=== PATIENT | male | born 1935 | race Caucasian/White ===

== ENCOUNTER 2018-07-24 16:03 | Emergency (ER) | payer MEDICARE, OTHER ==
[~2018-07-24] VITALS: Ht 170.2 cm; Wt 65.0 kg
[2018-07-24 16:13] VITALS: Ht 170.2 cm; Wt 65.0 kg
[2018-07-24] MEDS ORDERED: SOD CHLORIDE 0.9% 1,000 ML IV STA ×2 (16:20→18:18)
[2018-07-24] MEDS ORDERED: IBUP-1542 PO (17:21)
[2018-07-24] MEDS ORDERED: HYDR25TA6 PO (17:21)
[2018-07-24] MEDS ORDERED: METF500T24 PO (17:22)
[2018-07-24] MEDS ORDERED: ASPI-817 PO (17:23)
[2018-07-24] MEDS ORDERED: METO200T49 PO (17:23)
[2018-07-24] MEDS ORDERED: AMLO1CAP15 PO (17:24)
[2018-07-24] MEDS ORDERED: GLIM4TAB PO (17:24)
[2018-07-24] MEDS ORDERED: ATOR20TA38 PO (17:25)
[2018-07-24] MEDS ORDERED: LINA5TAB PO (17:25)
--- NOTE | 2018-07-24 20:07 | ERD ---
ER Documentation Chief Complaint Chief Complaint hyperglycemia, dizziness HPI This is a 83-year-old male who is here for multiple complaints. He says he is chief complaint is that his mouth is very dry and he is thirsty. He says he has some diffuse body aches with pain in his joints and muscles back and chest is worse with movement. He said occasional dry cough no productive sputum. No fever. No nausea vomiting or diarrhea. This information was translated using the charge nurse, Suzanne CLARKE All systems reviewed and are negative except as per history of present illness. Medications Home Meds Reported Medications Atorvastatin Calcium* (Atorvastatin Calcium*) 20 Mg Tablet, 20 MG PO QHS, #30 TAB 07/24/18 Linagliptin (TRADJENTA) 5 Mg Tablet, 5 MG PO DAILY, TAB 07/24/18 Amlodipine-Benazepril (Amlodipine-Benazepril) 10-40 Mg Capsule, 1 TAB PO DAILY, #30 TAB 07/24/18 Glimepiride* (Glimepiride*) 4 Mg Tablet, 4 MG PO WITH BREAKFAST, TAB 07/24/18 Aspirin* (Aspirin* EC) 81 Mg Tablet.dr, 81 MG PO DAILY, TAB 07/24/18 Metoprolol Succinate* (Toprol XL*) 200 Mg Tab.sr.24h, 200 MG PO DAILY, #30 TAB 07/24/18 Metformin Hcl* (Metformin Hcl*) 500 Mg Tablet, 1000 MG PO WITH BREAKFAST DINNE, #60 TAB 07/24/18 Ibuprofen* (Ibuprofen*) 600 Mg Tablet, 600 MG PO BID, TAB 07/24/18 Hydrochlorothiazide* (Hydrochlorothiazide*) 25 Mg Tab, 25 MG PO DAILY, #30 TAB 07/24/18 Allergies Allergies: Coded Allergies: No Known Allergy (Unverified , 07/24/18) PMhx/Soc History of Surgery: No Anesthesia Reaction: No Hx Neurological Disorder: No Hx Respiratory Disorders: No Hx Cardiac Disorders: Yes (htn) Hx Psychiatric Problems: No Hx Miscellaneous Medical Probl: No Hx Alcohol Use: No Hx Substance Use: No Hx Tobacco Use: No Smoking Status: Never smoker FmHx Family History: No coronary disease Physical Exam Vitals Vital Signs Date Temp Pulse Resp B/P (MAP) Pulse Ox O2 O2 Flow FiO2 Time Delivery Rate 07/24/18 68 20 97/61 (73) 98 Room Air 18:35 07/24/18 98.2 80 18 97/60 (72) 96 16:13 Physical Exam Const: Well-developed, well-nourished Head: Atraumatic, normocephalic Eyes: Normal Conjunctiva, PERRLA, EOMI, normal sclera, no nystagmus ENT: Normal External Ears, Nose and Mouth, moist mucus membranes, dry mucous membranes that are mildly dry with a little bit of a white coat to the tongue. Neck: Full range of motion. No meningismus, no lymphadenopathy. Resp: Clear to auscultation bilaterally, no wheezing, rhonchi, rales Cardio: Regular rate and rhythm, no murmurs, S1 S2 present Abd: Soft, non tender x 4, non distended. Normal bowel sounds, no guarding or rebound, no pulsitile abdominal masses or bruits Skin: No petechiae or rashes, no ecchymosis , no maculopapular rash Back: No midline or flank tenderness Ext: No cyanosis, or edema, FROM x 4, normal inspection, neurovascularly intact x 4 Neur: Awake and alert, STR 5/5 x 4, sensation intact x 4, no focal findings, cerebellum intact Psych: Normal Mood and Affect Result Diagram: 07/24/18 1625 07/24/18 1625 Results 24 hrs Laboratory Tests Test 07/24/18 16:25 07/24/18 17:45 White Blood Count 12.5 10^3/ul Red Blood Count 4.48 10^6/ul Hemoglobin 13.9 g/dl Hematocrit 40.9 % Mean Corpuscular Volume 91.3 fl Mean Corpuscular Hemoglobin 31.0 pg Mean Corpuscular Hemoglobin Concent 34.0 g/dl Red Cell Distribution Width 14.0 % Platelet Count 242 10^3/UL Mean Platelet Volume 11.4 fl Immature Granulocytes % 2.100 % Neutrophils % 81.9 % Lymphocytes % 8.9 % Monocytes % 6.5 % Eosinophils % 0.2 % Basophils % 0.4 % Nucleated Red Blood Cells % 0.0 /100WBC Immature Granulocytes # 0.260 10^3/ul Neutrophils # 10.3 10^3/ul Lymphocytes # 1.1 10^3/ul Monocytes # 0.8 10^3/ul Eosinophils # 0.0 10^3/ul Basophils # 0.1 10^3/ul Nucleated Red Blood Cells # 0.0 10^3/ul Sodium Level 139 mmol/L Potassium Level 5.0 mmol/L Chloride Level 109 mmol/L Carbon Dioxide Level 18 mmol/L Anion Gap 12 Blood Urea Nitrogen 62 mg/dl Creatinine 1.45 mg/dl Est Glomerular Filtrat Rate mL/min mL/min Glucose Level 368 mg/dl Calcium Level 9.7 mg/dl Total Bilirubin 0.6 mg/dl Direct Bilirubin 0.00 mg/dl Indirect Bilirubin 0.6 mg/dl Aspartate Amino Transf (AST/SGOT) 20 IU/L Alanine Aminotransferase (ALT/SGPT) 35 IU/L Alkaline Phosphatase 50 IU/L Troponin I < 0.012 ng/ml Total Protein 6.5 g/dl Albumin 3.7 g/dl Globulin 2.80 g/dl Albumin/Globulin Ratio 1.32 Urine Color YELLOW Urine Clarity SLIGHTLY CLOUDY Urine pH 5.0 Urine Specific [place] 1.026 Urine Ketones NEGATIVE mg/dL Urine Nitrite NEGATIVE mg/dL Urine Bilirubin NEGATIVE mg/dL Urine Urobilinogen NEGATIVE mg/dL Urine Leukocyte Esterase 1+ Nellie/ul Urine Microscopic RBC 6 /HPF Urine Microscopic WBC 7 /HPF Urine Squamous Epithelial Cells FEW /HPF Urine Hemoglobin NEGATIVE mg/dL Urine Glucose 3+ mg/dL Urine Total Protein NEGATIVE mg/dl Current Medications Medications Dose Sig/Delfina Start Time Status Last (Trade) Ordered Route PRN Stop Time Admin Dose Reason Admin Sodium 1,000 ml @ Q1H STAT 07/24/18 DC 07/24/18 Chloride 1,000 mls/hr IV 16:20 16:42 07/24/18 17:19 Sodium 1,000 ml @ Q1H STAT 07/24/18 DC 07/24/18 Chloride 1,000 mls/hr IV 18:18 19:36 07/24/18 19:17 Procedures/MDM Patient's labs show some prerenal azotemia. He has a mild acidosis. Give him a few liters of fluid and if feels better will discharge. The patient on reevaluation is telling me he feels much better. Will finish his IV fluids his blood pressure is currently 128/79. He feels well. I will provide him with a prescription for some nystatin do think he does have some mild oral thrush Departure Diagnosis: Primary Impression: Dehydration Condition: Stable JEFFERSON MCKEON DO Jul 24, 2018 20:04
[2018-07-24] MEDS ORDERED: NYST1000 PO (20:08)
[2018-07-24] MEDS ORDERED: INSULIN LISPRO 100 UNIT/ML VIAL SC ONE (21:30)
[2018-07-24] MEDS ORDERED: ACCU-CHEK XX ONE (21:30)
[2018-07-24 22:40] VITALS: BP 113/62; PULSE 76; RESP 19
== END 2018-07-24 22:40 | disposition home or self-care (01) ==
LOC: E/R 16:03
DX: E86.0 Dehydration (principal); I10 Essential (primary) hypertension; Z79.82 Long term (current) use of aspirin; Z79.84 Long term (current) use of oral hypoglycemic drugs
CPT/HCPCS: 36415; 71045; 80053; 81001; 82962; 84484; 85025; 96372; 99284; J1815; J7030